=== PATIENT | female | born 1965 | race Asian ===

== ENCOUNTER → 2018-06-13 08:34 | Outpatient (CLI) | payer OTHER, SELFPAY ==
[2018-06-13 12:01] LABS: Absolute Lymphocyte Count 1.92 X10^3/ul (0.83-4.51); Basophil# 0.02 X10^3/uL; Basophil% 0.4 % (0-1); Eosinophil# 0.17 X10^3/uL; Eosinophils% 3.2 % (0-5); Hematocrit 39.1 % (37-47); Lymphocyte # 1.92 X10^3/ul (4.0); Lymphocyte % 35.6 % (19-41); Mean Corp Hgb Conc 33.2 g/gl (32-36); Mean Corpuscular Hgb 30.9 pg (27.0-32.0); Mean Corpuscular Volume 92.9 fL (81-99); Mean Platelet Vol. 10.6 fl (6.2-12.0); Monocyte# 0.25 X10^3/uL; Monocyte% 4.6 % (0-10); Neutrophil # 3.02 X10^3/uL (2.7-7.7); Platelet Count 283 K/mm3 (150-450); RBC Distribution Width CV 12.7 % (11.6-14.6); RBC Distribution Width SD 42.1 fl (35.1-43.9); Red Blood Count 4.21 M/mm3 (4.2-5.4); White Blood Count 5.4 K/mm3 (4.4-11.0)
[2018-06-13 12:10] LABS: POSITIVE COUNT NO; POSITIVE DIFFERENTIAL NO; POSITIVE MORPHOLOGY NO
[2018-06-13 12:17] LABS: AST(SGOT) 18 U/L (15-37); Alanine Aminotransfer ALT/SGPT 24 U/L (13-56); Albumin, Serum 3.9 g/dL (3.2-5.0); Alkaline Phosphatase 95 U/L (45-117); Anion Gap 10 (5-15); BUN 12 mg/dL (7-18); BUN/Creat Ratio 17.7 RATIO (10-20); Calcium,Total 8.9 mg/dL (8.5-10.1); Chloride 106 mmol/L (98-107); Cholesterol 182 mg/dL (200); Creatinine, Serum 0.68 mg/dL (0.55-1.02); EST Glomerular Filtration Rate 96 mL/min (>60); Est Glom Filt Rate - Afr Amer 116 mL/min (>60); Glucose 90 mg/dL (74-106); High Density Lipoprotein 42 mg/dL; Potassium 3.8 mmol/L (3.5-5.1); Protein, Total 7.9 g/dL (6.4-8.2); Sodium Level 144 mmol/L (136-145); Triglycerides 177 mg/dL; Very Low Density Lipoprotein 35 mg/dL (5-40)
== END ==
PROVIDERS: Family Provider Family Medicine; PCP Family Medicine; Visit Provider Family Medicine
DX: Z00.00 Encounter for general adult medical examination without abnormal findings (principal)
CPT/HCPCS: 36415; 80053; 80061; 85025

== ENCOUNTER → 2019-11-30 08:57 | Outpatient (CLI) | payer OTHER, SELFPAY ==
[2019-11-30 12:24] LABS: Absolute Lymphocyte Count 2.57 X10^3/uL (0.83-4.51); Absolute Neutrophil Count 2.9 X10^3/uL (2.0-7.7); Basophil# 0.04 X10^3/uL; Basophil% 0.7 % (0-1); Eosinophil# 0.16 X10^3/uL; Eosinophils% 2.7 % (0-5); Hematocrit 39.9 % (37-47); Hemoglobin 13.1 g/dL (12.0-15.0); Lymphocyte # 2.57 X10^3/ul (4.0); Lymphocyte % 42.6 % (19-41); Mean Corp Hgb Conc 32.8 g/dL (32-36); Mean Corpuscular Hgb 30.7 pg (27.0-32.0); Mean Corpuscular Volume 93.4 fL (81-99); Mean Platelet Vol. 10.3 fl (6.2-12.0); Monocyte# 0.37 X10^3/uL; Monocyte% 6.1 % (0-10); NRBC Flagged by Analyzer 0 % (0-5); Neutrophil # 2.87 X10^3/uL (2.7-7.7); Neutrophil % 47.6 % (47-70); Platelet Count 307 K/mm3 (150-450); RBC Distribution Width CV 12.8 % (11.6-14.6); RBC Distribution Width SD 43.5 fl (35.1-43.9); Red Blood Count 4.27 M/mm3 (4.2-5.4)
[2019-11-30 12:58] LABS: AST(SGOT) 15 U/L (15-37); Alanine Aminotransfer ALT/SGPT 24 U/L (13-56); Alkaline Phosphatase 104 U/L (45-117); Anion Gap 5 (5-15); BUN 16 mg/dL (7-18); BUN/Creat Ratio 22.5 RATIO (10-20); Calcium,Total 9.1 mg/dL (8.5-10.1); Chloride 105 mmol/L (98-107); Cholesterol 192 mg/dL (200); Creatinine, Serum 0.71 mg/dL (0.55-1.02); EST Glomerular Filtration Rate 91 mL/min (>60); Est Glom Filt Rate - Afr Amer 110 mL/min (>60); Globulin 4.1 g/dL (2.2-4.2); Glucose 93 mg/dL (74-106); High Density Lipoprotein 44 mg/dL; Potassium 3.5 mmol/L (3.5-5.1); Protein, Total 8.1 g/dL (6.4-8.2); Sodium Level 139 mmol/L (136-145); Triglycerides 196 mg/dL; Very Low Density Lipoprotein 39 mg/dL (5-40)
[2019-11-30 13:08] LABS: Hemoglobin A1c 6.3 % (4.2-6.3)
== END ==
PROVIDERS: PCP Family Medicine; Visit Provider Family Medicine
DX: Z00.00 Encounter for general adult medical examination without abnormal findings (principal); R73.01 Impaired fasting glucose
CPT/HCPCS: 36415; 80053; 80061; 83036; 85025

== ENCOUNTER → 2021-03-10 09:44 | Outpatient (CLI) | payer OTHER, SELFPAY ==
[2021-03-10 12:20] LABS: Absolute Lymphocyte Count 2.46 X10^3/uL (0.83-4.51); Absolute Neutrophil Count 3.2 X10^3/uL (2.0-7.7); Basophil# 0.04 X10^3/uL; Basophil% 0.6 % (0-1); Eosinophil# 0.27 X10^3/uL; Eosinophils% 4.2 % (0-5); Hematocrit 39.8 % (37-47); Hemoglobin 12.8 g/dL (12.0-15.0); Lymphocyte # 2.46 X10^3/ul (0.83-4.51); Lymphocyte % 38.5 % (19-41); Mean Corp Hgb Conc 32.2 g/dL (32-36); Mean Corpuscular Hgb 29.5 pg (27.0-32.0); Mean Corpuscular Volume 91.7 fL (81-99); Mean Platelet Vol. 9.3 fl (6.2-12.0); Monocyte# 0.38 X10^3/uL; Monocyte% 5.9 % (0-10); NRBC Flagged by Analyzer 0 % (0-5); Neutrophil # 3.23 X10^3/uL (2.7-7.7); Neutrophil % 50.6 % (47-70); Platelet Count 369 K/mm3 (150-450); RBC Distribution Width CV 12.7 % (11.6-14.6); Red Blood Count 4.34 M/mm3 (4.2-5.4); White Blood Count 6.4 K/mm3 (4.4-11.0)
[2021-03-10 12:38] LABS: Hemoglobin A1c 6.1 % (3.8-5.6)
[2021-03-10 12:39] LABS: AST(SGOT) 13 U/L (15-37); Alanine Aminotransfer ALT/SGPT 21 U/L (13-56); Albumin, Serum 4.1 g/dL (3.2-5.0); Alkaline Phosphatase 96 U/L (45-117); Anion Gap 7 (5-15); BUN 13 mg/dL (7-18); BUN/Creat Ratio 21.1 RATIO (10-20); Chloride 105 mmol/L (98-107); Cholesterol 199 mg/dL (200); Creatinine, Serum 0.62 mg/dL (0.55-1.02); EST Glomerular Filtration Rate 106 mL/min (>60); Est Glom Filt Rate - Afr Amer 128 mL/min (>60); Glucose 94 mg/dL (74-106); High Density Lipoprotein 45 mg/dL; Potassium 3.1 mmol/L (3.5-5.1); Protein, Total 8.1 g/dL (6.4-8.2); Sodium Level 140 mmol/L (136-145); Triglycerides 228 mg/dL; Very Low Density Lipoprotein 46 mg/dL (5-40)
== END ==
PROVIDERS: PCP Family Medicine; Referring Provider Family Medicine; Visit Provider Family Medicine
DX: Z00.00 Encounter for general adult medical examination without abnormal findings (principal); R73.01 Impaired fasting glucose
CPT/HCPCS: 36415; 80053; 80061; 83036; 85025

== ENCOUNTER → 2022-07-22 | Outpatient (CLI) | payer OTHER, SELFPAY ==
[2022-07-22 10:08] LABS: Absolute Lymphocyte Count 2.28 X10^3/uL (0.83-4.51); Absolute Neutrophil Count 3.7 X10^3/uL (2.0-7.7); Basophil# 0.03 X10^3/uL; Basophil% 0.4 % (0-1); Eosinophil# 0.25 X10^3/uL; Eosinophils% 3.7 % (0-5); Hematocrit 38.9 % (37-47); Hemoglobin 12.7 g/dL (12.0-15.0); Lymphocyte # 2.28 X10^3/ul (0.83-4.51); Lymphocyte % 34.1 % (19-41); Mean Corp Hgb Conc 32.6 g/dL (32-36); Mean Corpuscular Hgb 30.5 pg (27.0-32.0); Mean Corpuscular Volume 93.3 fL (81-99); Mean Platelet Vol. 9.9 fl (6.2-12.0); Monocyte# 0.37 X10^3/uL; Monocyte% 5.5 % (0-10); NRBC Flagged by Analyzer 0 % (0-5); Neutrophil # 3.73 X10^3/uL (2.7-7.7); Platelet Count 337 K/mm3 (150-450); RBC Distribution Width CV 13.3 % (11.6-14.6); RBC Distribution Width SD 45.5 fl (35.1-43.9); Red Blood Count 4.17 M/mm3 (4.2-5.4); White Blood Count 6.7 K/mm3 (4.4-11.0)
[2022-07-22 10:23] LABS: Hemoglobin A1c 6.2 % (3.8-5.6)
[2022-07-22 10:33] LABS: ALB/GLOB Ratio 0.9 RATIO (0.9-2.4); AST(SGOT) 20 U/L (15-37); Alanine Aminotransfer ALT/SGPT 30 U/L (13-56); Albumin, Serum 3.9 g/dL (3.2-5.0); Alkaline Phosphatase 97 U/L (45-117); Anion Gap 6 (5-15); BUN 12 mg/dL (7-18); BUN/Creat Ratio 16.2 RATIO (10-20); Calcium,Total 9.3 mg/dL (8.5-10.1); Chloride 106 mmol/L (98-107); Cholesterol 207 mg/dL (200); Creatinine, Serum 0.74 mg/dL (0.55-1.02); EST Glomerular Filtration Rate 85 mL/min (>60); Est Glom Filt Rate - Afr Amer 103 mL/min (>60); Globulin 4.2 g/dL (2.2-4.2); Glucose 108 mg/dL (74-106); High Density Lipoprotein 42 mg/dL; Potassium 3.5 mmol/L (3.5-5.1); Protein, Total 8.1 g/dL (6.4-8.2); Sodium Level 141 mmol/L (136-145); T4 Free Direct 1.11 ng/dL (0.76-1.46); Thyroid Stim Hormone (TSH) 0.89 uIU/mL (0.358-3.74); Triglycerides 264 mg/dL; Very Low Density Lipoprotein 53 mg/dL (5-40)
== END | disposition home or self-care (01) ==
LOC: MTLAB 07:58
PROVIDERS: PCP Family Medicine; Referring Provider Family Medicine; Visit Provider Family Medicine
DX: Z00.00 Encounter for general adult medical examination without abnormal findings (principal); R00.2 Palpitations; R73.01 Impaired fasting glucose
CPT/HCPCS: 36415; 80053; 80061; 83036; 84439; 84443; 85025

== ENCOUNTER → 2022-09-25 | Outpatient (CLI) | payer OTHER, SELFPAY ==
--- NOTE | 2022-09-25 15:01 | BI_ITS ---
MAMMOGRAPHY - BILATERAL SCREENING REASON FOR EXAM: Female, 56 years old. Routine annual screening examination. PERTINENT HISTORY: Non-contributory. TECHNIQUE: Digital bilateral breast jennifer (3D mammographic acquisition) in the CC and MLO projections. 2-D mediolateral oblique (MLO) and craniocaudad (CC) views of both breasts were obtained. CAD: Full Field Digital Mammography with Computer Added Detection was performed. COMPARISON: Mammogram from outside hospital from 03/24/2021, [facility] 2019. FINDINGS: Breast Composition: The breasts are heterogeneously dense, which may obscure small masses. There are no dominant masses or suspicious calcifications. No other significant abnormalities are identified. There has been no significant change since the prior study. BI/SCRN MAMM (CAD)W/JENNIFER BILAT IMPRESSION: Stable bilateral screening mammogram. Yearly follow-up mammogram recommended. (A) ASSESSMENT CATEGORY: BIRADS Category 1: Negative. A letter regarding these results will be sent to the patient by the facility within 30 days. Approximately 10% of breast cancers are not detected by mammography. A normal mammogram should not delay biopsy of a clinically suspicious abnormality. Electronically Signed: Geraldo Rodríguez, at 10:01 EST ,
== END | disposition home or self-care (01) ==
LOC: OPBI 14:58
PROVIDERS: PCP Family Medicine; Referring Provider Family Medicine; Visit Provider Family Medicine
DX: Z12.31 Encounter for screening mammogram for malignant neoplasm of breast (principal)
CPT/HCPCS: 77063; 77067

== ENCOUNTER → 2023-09-13 | Outpatient (CLI) | payer OTHER, SELFPAY ==
[2023-09-13 12:19] LABS: Absolute Lymphocyte Count 2.57 X10^3/uL (0.83-4.51); Absolute Neutrophil Count 3.1 X10^3/uL (2.0-7.7); Basophil# 0.06 X10^3/uL; Basophil% 0.9 % (0-1); Eosinophil# 0.24 X10^3/uL; Eosinophils% 3.7 % (0-5); Hematocrit 39.1 % (37-47); Hemoglobin 12.8 g/dL (12.0-15.0); Lymphocyte # 2.57 X10^3/ul (0.83-4.51); Lymphocyte % 39.4 % (19-41); Mean Corp Hgb Conc 32.7 g/dL (32-36); Mean Corpuscular Hgb 30.4 pg (27.0-32.0); Mean Corpuscular Volume 92.9 fL (81-99); Mean Platelet Vol. 9.8 fl (6.2-12.0); Monocyte# 0.46 X10^3/uL; NRBC Flagged by Analyzer 0 % (0-5); Neutrophil # 3.14 X10^3/uL (2.7-7.7); Neutrophil % 48.1 % (47-70); Platelet Count 350 K/mm3 (150-450); RBC Distribution Width CV 13.2 % (11.6-14.6); RBC Distribution Width SD 44.8 fl (35.1-43.9); Red Blood Count 4.21 M/mm3 (4.2-5.4); White Blood Count 6.5 K/mm3 (4.4-11.0)
[2023-09-13 12:58] LABS: AST(SGOT) 14 U/L (15-37); Alanine Aminotransfer ALT/SGPT 26 U/L (13-56); Alkaline Phosphatase 101 U/L (45-117); Anion Gap 3 (5-15); BUN 10 mg/dL (7-18); BUN/Creat Ratio 13.4 RATIO (10-20); Calcium,Total 9.2 mg/dL (8.5-10.1); Chloride 105 mmol/L (98-107); Cholesterol 208 mg/dL (200); Creatinine, Serum 0.75 mg/dL (0.55-1.02); EST Glomerular Filtration Rate 84 mL/min (>60); Est Glom Filt Rate - Afr Amer 102 mL/min (>60); Globulin 3.9 g/dL (2.2-4.2); Glucose 90 mg/dL (74-106); High Density Lipoprotein 42 mg/dL; Potassium 3.8 mmol/L (3.5-5.1); Protein, Total 7.9 g/dL (6.4-8.2); Sodium Level 139 mmol/L (136-145); Triglycerides 294 mg/dL; Very Low Density Lipoprotein 59 mg/dL (5-40)
== END | disposition home or self-care (01) ==
LOC: BFHLAB 10:11
PROVIDERS: PCP Family Medicine; Referring Provider Family Medicine; Visit Provider Family Medicine
DX: Z00.00 Encounter for general adult medical examination without abnormal findings (principal); R73.01 Impaired fasting glucose
CPT/HCPCS: 36415; 80053; 80061; 83036; 85025

== ENCOUNTER → 2024-02-02 | Outpatient (CLI) | payer OTHER, SELFPAY | END | disposition home or self-care (01) | PROVIDERS: PCP Family Medicine; Referring Provider Family Medicine; Visit Provider Family Medicine | DX: R05.9 Cough, unspecified (principal) | CPT/HCPCS: 87070; 87205 ==

== ENCOUNTER → 2024-06-12 | Outpatient (CLI) | payer OTHER, SELFPAY ==
[2024-06-15 03:07] LABS: QNTFERON TB Mitogen Value 1.83 IU/mL (.); QNTFERON TB Nil Value 0.03 IU/mL (.); QNTFERON TB1+ Ag Value 0.05 IU/mL (.); QNTFERON TB2+ Ag Value 0.01 IU/mL (.); QNTIFERON TB Positive Criteria Negative (Negative)
== END | disposition home or self-care (01) ==
LOC: MTLAB 08:15
PROVIDERS: PCP Family Medicine; Referring Provider Internal Medicine Pulmonary Disease; Visit Provider Internal Medicine Pulmonary Disease
DX: R06.02 Shortness of breath (principal)
CPT/HCPCS: 36415; 86480

== ENCOUNTER → 2024-09-28 | Outpatient (CLI) | payer OTHER, SELFPAY ==
[2024-09-28 10:04] LABS: Absolute Lymphocyte Count 3.05 X10^3/uL (0.83-4.51); Absolute Neutrophil Count 3.8 X10^3/uL (2.0-7.7); Basophil# 0.06 X10^3/uL; Basophil% 0.8 % (0-1); Eosinophils% 3.8 % (0-5); Hematocrit 39.8 % (37-47); Hemoglobin 12.8 g/dL (12.0-15.0); Lymphocyte # 3.05 X10^3/ul (0.83-4.51); Mean Corp Hgb Conc 32.2 g/dL (32-36); Mean Corpuscular Hgb 29.4 pg (27.0-32.0); Mean Corpuscular Volume 91.3 fL (81-99); Monocyte# 0.57 X10^3/uL; Monocyte% 7.3 % (0-10); NRBC Flagged by Analyzer 0 % (0-5); Neutrophil # 3.83 X10^3/uL (2.7-7.7); Platelet Count 364 K/mm3 (150-450); RBC Distribution Width CV 13.9 % (11.6-14.6); RBC Distribution Width SD 46.8 fl (35.1-43.9); Red Blood Count 4.36 M/mm3 (4.2-5.4); White Blood Count 7.8 K/mm3 (4.4-11.0)
[2024-09-28 10:36] LABS: ALB/GLOB Ratio 0.8 RATIO (0.9-2.4); AST(SGOT) 14 U/L (15-37); Alanine Aminotransfer ALT/SGPT 22 U/L (13-56); Albumin, Serum 3.7 g/dL (3.2-5.0); Alkaline Phosphatase 106 U/L (45-117); Anion Gap 8 (5-15); BUN 11 mg/dL (7-18); Calcium,Total 8.9 mg/dL (8.5-10.1); Chloride 105 mmol/L (98-107); Cholesterol 218 mg/dL (200); Creatinine, Serum 0.69 mg/dL (0.55-1.02); EST Glomerular Filtration Rate 92 mL/min (>60); Est Glom Filt Rate - Afr Amer 112 mL/min (>60); Globulin 4.7 g/dL (2.2-4.2); Glucose 110 mg/dL (74-106); High Density Lipoprotein 50 mg/dL; Potassium 3.6 mmol/L (3.5-5.1); Protein, Total 8.4 g/dL (6.4-8.2); Sodium Level 141 mmol/L (136-145); Triglycerides 164 mg/dL; Very Low Density Lipoprotein 33 mg/dL (5-40)
[2024-09-28 10:42] LABS: Hemoglobin A1c 6.4 % (3.8-5.6)
== END | disposition home or self-care (01) ==
PROVIDERS: PCP Family Medicine; Referring Provider Family Medicine; Visit Provider Family Medicine
DX: Z00.00 Encounter for general adult medical examination without abnormal findings (principal); R73.01 Impaired fasting glucose
CPT/HCPCS: 36415; 80053; 80061; 83036; 85025

== ENCOUNTER → 2024-12-18 | Outpatient (CLI) | payer OTHER, SELFPAY ==
--- NOTE | 2024-12-18 10:03 | RAD_ITS ---
PROCEDURE: CHEST PA AND LATERAL REASON FOR EXAM: Asthma. TECHNIQUE: Frontal and lateral views of the chest. COMPARISON: None. FINDINGS: The heart size is normal. The mediastinal contour is unremarkable. The lungs are clear. The bones are unremarkable. RAD/Chest PA and Lateral IMPRESSION: No evidence of acute disease. Negative examination. Reading Location: [id number]
== END | disposition home or self-care (01) ==
LOC: MTLAB 10:01 → MTRAD 10:02
PROVIDERS: PCP Family Medicine; Referring Provider Internal Medicine Pulmonary Disease; Visit Provider Internal Medicine Pulmonary Disease
DX: J45.909 Unspecified asthma, uncomplicated (principal)
CPT/HCPCS: 71046

== ENCOUNTER → 2025-01-10 | Outpatient (CLI) | payer OTHER, SELFPAY ==
--- NOTE | 2025-01-10 08:00 | RAD_ITS ---
PROCEDURE: ESOPHAGUS DUAL CONTRAST REASON FOR EXAM: Feeling of food and liquids getting stuck in esophagus. Acid reflux at night. TECHNIQUE: Following the ingestion of effervescent granules and high density barium, routine fluoroscopic imaging was performed with routine image documentation. COMPARISON: None. FINDINGS: No abnormalities were noted in the hypopharynx. Barium flowed through the esophagus freely. No abnormal contractility. No constricting or obstructing lesions were noted. No intraluminal filling defects. No hiatal hernia. No reflux was demonstrated. RAD/Esophagus Dual Contrast IMPRESSION: Unremarkable double contrast esophagram. Reading Location: [place] [id number]
== END | disposition home or self-care (01) ==
LOC: RAD 07:40
PROVIDERS: PCP Family Medicine; Referring Provider Otolaryngology; Visit Provider Otolaryngology
DX: R13.10 Dysphagia, unspecified (principal)
CPT/HCPCS: 74221

== ENCOUNTER → 2025-01-20 | Outpatient (CLI) | payer OTHER, SELFPAY ==
--- NOTE | 2025-01-20 08:00 | MRI_ITS ---
PROCEDURE: Noncontrast MRI of the pelvis. REASON FOR EXAM: Difficulty controlling urination. Evaluate for urethral diverticulum. TECHNIQUE: Multiplanar, multisequence MRI images of the pelvis were obtained without IV contrast. COMPARISON: None. FINDINGS: Mild degenerative changes in the lower lumbar spine. The remaining included osseous structures of the pelvis and proximal femurs appear intact. Origins of the hamstring complexes and distal attachments of the iliopsoas tendons are intact. No concerning pelvic mass or adenopathy. The included lower bowel segments show no specific abnormality. Scattered wall thickening of the included distal colon may be due to lack of distention versus peristalsis. No dominant adnexal lesion. The uterus is present. No gross abnormal endometrial thickening. Uterine myometrium is heterogeneous. There are a few T2 hyperintense lesions of the uterus, suspicious for fibroids, the largest exophytic at the right anterior fundus measuring 2.2 cm. Mild diffuse wall thickening of the urinary bladder may be due to lack of distention. No abnormal T2 hyperintense fluid signal along the course of the urethra to indicate a diverticulum. No discrete mass or abnormal fluid collection of the labia. MRI/Pelvis (Routine) IMPRESSION: No MRI evidence of a urethral diverticulum. T2 hypointense lesions of the uterine myometrium, the largest exophytic at the right anterior fundus measuring 2.2 cm, suspicious for fibroids. No dominant adnexal lesion. Reading Location: [facility]
== END | disposition home or self-care (01) ==
LOC: MRI 07:53
PROVIDERS: PCP Family Medicine; Referring Provider Urology; Visit Provider Urology
DX: N36.1 Urethral diverticulum (principal)
CPT/HCPCS: 72195

== ENCOUNTER 2025-03-15 08:29 | Day surgery (SDC) | payer OTHER, SELFPAY ==
--- NOTE | 2025-03-09 07:29 | EKG12_ITS ---
Test Reason : PREOP Blood Pressure : */* mmHG Vent. Rate : 68 BPM Atrial Rate : 68 BPM P-R Int : 144 ms QRS Dur : 78 ms QT Int : 396 ms P-R-T Axes : 50 4 13 degrees QTcB Int : 421 ms Normal sinus rhythm Possible Inferior infarct , age undetermined Abnormal ECG Confirmed by ROSSY ALVARENGA, MARIA ELENA ([id number]), manuscript editor SIOMARA RUSSELL ([id number]) on 03/09/2025 1:15:37 PM Referred By: Janay Villegas Confirmed By: MARIA ELENA BLAIR MD
[2025-03-09 08:34] LABS: Hematocrit 38.1 % (37-47); Hemoglobin 12.8 g/dL (12.0-15.0); Mean Corp Hgb Conc 33.6 g/dL (32-36); Mean Corpuscular Hgb 30.9 pg (27.0-32.0); Mean Platelet Vol. 9.5 fl (6.2-12.0); Platelet Count 337 K/mm3 (150-450); RBC Distribution Width CV 12.9 % (11.6-14.6); Red Blood Count 4.14 M/mm3 (4.2-5.4); White Blood Count 6.9 K/mm3 (4.4-11.0)
[2025-03-09 09:45] LABS: Anion Gap 11 (5-15); BUN 12 mg/dL (4-19); BUN/Creat Ratio 16.8 RATIO (10-20); Calcium,Total 9.3 mg/dL (7.6-11.0); Carbon Dioxide 24.3 mmol/L (21.0-32.0); Chloride 106 mmol/L (98-108); Creatinine, Serum 0.68 mg/dL (0.70-1.20); EST Glomerular Filtration Rate 99 (>60); Glucose 121 mg/dL (70-99); Potassium 3.7 mmol/L (3.3-5.1); Sodium Level 140 mmol/L (133-145)
--- NOTE | 2025-03-12 14:23 | PAT.ANE_ITS ---
Pre-Assessment Diagnosis/Proposed Procedure Planned Operative Procedure(s): CYSTO, MID URETHRAL SLING Anesthesia History Anesthesia History - health facilities surveyor: Anesthesia History - health facilities surveyor Hx Hospitalization No 03/08/25 15:47 Any Problems With Anesthesia No 03/08/25 15:47 Cholinesterase deficiency No 03/08/25 15:47 You/Your Family Experience No 03/08/25 15:47 fever (hyperthermia) with Relationship Recent Exposure to Contagious Disease Does patient have nerve No 03/08/25 15:47 stimulator Patient instructed to have device shut off --Does patient have Pacemaker or ICD? When Was Last Pacemaker Check QUESTION #4 FULL TEXT: You/Your Family Experience fever (hyperthermia) with Anesthesia Last Oral Intake Last Oral intake: Last Oral Intake NPO since Meds taken in AM with sips of water? Meds patient instructed to take am of surgery PONV PONV - health facilities surveyor: PONV - health facilities surveyor Female Yes 03/08/25 15:47 HX of Motion Sickness No 03/08/25 15:47 HX of N/V After Surgery No 03/08/25 15:47 Non-Smoker Yes 03/08/25 15:47 Duration of Surgery greater No 03/08/25 15:47 than 60 minutes Number of Risk Factors 2 03/08/25 15:47 PONV Score Moderate Risk 03/08/25 15:47 Respiratory Assessment Respiratory Assessment - health facilities surveyor: Respiratory Tract Infection Hx - health facilities surveyor Hx Respiratory Tract Infection No 03/08/25 15:47 STOP Sleep Apnea STOP Sleep Apnea - health facilities surveyor: STOP Sleep Apnea - health facilities surveyor Hx Hypertension No 03/08/25 15:47 Hx Sleep Apnea No 03/08/25 15:47 CPAP BIPAP Do you snore loudly (louder No 03/08/25 15:47 than talking or can be heard Do you often feel tired/ No 03/08/25 15:47 fatigued/ sleepy during daytime? Has anyone observed you stop No 03/08/25 15:47 breathing during sleep? STOP Results Negative 03/08/25 15:47 QUESTION #5 FULL TEXT : Do you snore loudly (louder than talking or can be heard through closed doors)? Tobacco Use History Tobacco Use History - health facilities surveyor: Tobacco Use History - health facilities surveyor Tobacco Use Smoking Status Never smoker 03/08/25 15:47 Hx Tobacco Use No 03/08/25 15:47 Years Smoking Packs Smoked per Day Smoking Cessation Date was within the last 15 years Hx Smoking Cessation Date Hx Smoking Cessation Counseling Hematologic Medial History Hematologic Hx - health facilities surveyor: Hematologic Medical Hx - curb setter helper Hx of Blood Transfusion No 03/08/25 15:47 Hx of Transfusion in last 3 No 03/08/25 15:47 Months Date of Last Transfusion (if within last 3 months) Ever experience any problems No 03/08/25 15:47 with transfusion(s)? Specify any problems Hx of Preganancy in last 3 No 03/08/25 15:47 Months Nurse Filling Out Transfusion [facility] 03/08/25 15:47 & Questions: Date: 03/08/25 03/08/25 15:47 Time: 16:00 03/08/25 15:47 Patient unable to answer at this time (ie. confused, unrespo /Reproduction History /Reproductive History - health facilities surveyor: /Reproductive Hx- health facilities surveyor Hx Now No 03/08/25 15:47 Gestational Age (in weeks): EDC: Hx Hx Para Hx Section SAB No 03/08/25 15:47 [facility] Medical History (Updated 03/08/25 @ 16:00 by Carina Pichardo) Wears glasses Bladder disease High cholesterol Gastric reflux Asthma Home Medications ?Medication ?Instructions ?Recorded ?Last Taken ?Type famotidine 10 mg tablet (Pepcid AC) 10 mg PO BID PRN P RN Heartburn 07/29/15 Unknown History fluticasone furoate 100 1 ea inhalation DAILY Unknown History mcg-vilanterol 25 mcg/dose inhalation powder (Breo Ellipta) Allergy/AdvReac Type Severity Reaction Status Date / Time No Known Allergies Allergy Verified 07/29/15 10:06 Surgical History (Updated 03/08/25 @ 15:47 by Carina Pichardo) No history of previous surgery Social History Smoking Status: Never smoker Audit: Pertinent Findings Pertinent Findings EKG Perinent findings: Normal sinus rhythm Possible Inferior infarct , age undetermined Abnormal ECG Recommendation Anesthesia Recommendation Anesthesia recommendation: OPTIMIZED for anesthesia
[2025-03-15] VITALS (9 sets, daily range): BP systolic 111–137; BP diastolic 63–77; PULSE 61–97; RESP 14–18; TEMP 36.1–36.8; O2SAT 96–100; BMI 25.4
[2025-03-15] MEDS: Lactated Ringers 1,000 ML 15 ML IV (09:11)
--- NOTE | 2025-03-15 09:29 | PCM.PRE.AN2 ---
ASA Classification* ASA Classification ASA Classification: 2 Assessment & Plan Anesthesia* Anesthesia Assessment Anesthesia Assessment: Discussed sedation and/or anesthesia options, risks, benefits, and alternatives with patient/parents/legal guardian/POA. Questions invited. The patient/parents/legal guardian/POA seems to understand and agrees to proceed with anesthesia plan. Reviewed the physical assessment, medical history, allergy history and patient home medications list prior to surgery/procedure/anesthetic and documented any changes. Performed airway and anesthesia risk assessments. Anesthesia Type Anesthesia Type: General History Source History Obtained from:: Patient and Chart Anesthesia Focused Assessment* Temperature: 98.3 F Pulse Rate: 64 Blood Pressure: 122/76 Respiratory Rate: 16 Pulse Ox: 100 Oxygen Delivery Method: Room Air Airway Assessment Mouth opens: >3 cm Mallampati Score: II Teeth Condition: Intact Neck Range of motion (ROM): Full ROM Comment: Short thyromental distance Focused Labs Anesthesia Preop lab: CBC WBC 6.9 K/mm3 (4.4-11.0) 03/09/25 07:50 03/09/25 RBC 4.14 M/mm3 (4.2-5.4) L 03/09/25 07:50 03/09/25 Hgb 12.8 g/dL (12.0-15.0) 03/09/25 07:50 03/09/25 Hct 38.1 % (37-47) 03/09/25 07:50 03/09/25 Plt Count 337 K/mm3 (150-450) 03/09/25 07:50 03/09/25 CHEMISTRY Potassium 3.7 mmol/L (3.3-5.1) 03/09/25 07:50 03/09/25 Sodium 140 mmol/L (133-145) 03/09/25 07:50 03/09/25 BUN 12 mg/dL (4-19) 03/09/25 07:50 03/09/25 Creatinine 0.68 mg/dL (0.70-1.20) L 03/09/25 07:50 03/09/25 Glucose 121 mg/dL (70-99) H 03/09/25 07:50 03/09/25 TSH 0.89 uIU/mL (0.358-3.74) 07/22/22 08:00 07/22/22 COAG Pre-Assessment Diagnosis/Proposed Procedure Planned Operative Procedure(s): CYSTO, MID URETHRAL SLING Anesthesia History Anesthesia History - inspector bullet slugs: Anesthesia History - inspector bullet slugs Hx Hospitalization No 03/08/25 15:47 Any Problems With Anesthesia No 03/08/25 15:47 Cholinesterase deficiency No 03/08/25 15:47 You/Your Family Experience No 03/08/25 15:47 fever (hyperthermia) with Relationship Recent Exposure to Contagious No 03/15/25 09:06 Disease Does patient have nerve No 03/08/25 15:47 stimulator Patient instructed to have device shut off --Does patient have Pacemaker No 03/15/25 09:06 or ICD? When Was Last Pacemaker Check QUESTION #4 FULL TEXT: You/Your Family Experience fever (hyperthermia) with Anesthesia Last Oral Intake Last Oral intake: Last Oral Intake NPO since 00:00 03/15/25 09:06 Meds taken in AM with sips of No 03/15/25 09:06 water? Meds patient instructed to take am of surgery PONV PONV - inspector bullet slugs: PONV - inspector bullet slugs Female Yes 03/08/25 15:47 HX of Motion Sickness No 03/08/25 15:47 HX of N/V After Surgery No 03/08/25 15:47 Non-Smoker Yes 03/08/25 15:47 Duration of Surgery greater No 03/08/25 15:47 than 60 minutes Number of Risk Factors 2 03/08/25 15:47 PONV Score Moderate Risk 03/08/25 15:47 Height & Weight Height & Weight: Anesthesia: Height & Weight Height 5 ft 3 in 03/15/25 09:06 Weight: 65 kg 03/15/25 09:06 Body Mass Index (BMI) 25.4 03/15/25 09:06 Respiratory Assessment Respiratory Assessment - inspector bullet slugs: Respiratory Tract Infection Hx - inspector bullet slugs Hx Respiratory Tract Infection No 03/08/25 15:47 STOP Sleep Apnea STOP Sleep Apnea - inspector bullet slugs: STOP Sleep Apnea - inspector bullet slugs Hx Hypertension No 03/08/25 15:47 Hx Sleep Apnea No 03/08/25 15:47 CPAP BIPAP Do you snore loudly (louder No 03/08/25 15:47 than talking or can be heard Do you often feel tired/ No 03/08/25 15:47 fatigued/ sleepy during daytime? Has anyone observed you stop No 03/08/25 15:47 breathing during sleep? STOP Results Negative 03/08/25 15:47 QUESTION #5 FULL TEXT : Do you snore loudly (louder than talking or can be heard through closed doors)? 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 Specify any problems Hx of Preganancy in last 3 No 03/08/25 15:47 Months [facility] 03/08/25 15:47 & Questions: Date: 03/08/25 03/08/25 15:47 Time: 16:00 03/08/25 15:47 Patient unable to answer at this time (ie. confused, unrespo /Reproduction History /Reproductive History - inspector bullet slugs: /Reproductive Hx- inspector bullet slugs Hx Now No 03/08/25 15:47 Gestational Age (in weeks): EDC: Hx Hx Para Hx Section SAB No 03/08/25 15:47 Active Medications Active Medications: Current Medications Generic Name Dose Route Start Last Admin Trade Name Freq PRN Reason Stop Dose Admin Cefazolin Sodium 2 gm/ Sodium 110 mls @ 150 mls/hr 03/15/25 10:00 Chloride IV 03/15/25 10:43 INTRAOP ONE Lactated Ringer's 1,000 mls @ 15 mls/hr 03/15/25 08:45 03/15/25 09:11 IV 15 mls/hr .Q48H NATY Administration PFSH Medical History Wears glasses Bladder disease High cholesterol Gastric reflux Asthma Home Medications ?Medication ?Instructions ?Recorded ?Last Taken ?Type famotidine 10 mg tablet (Pepcid AC) 10 mg PO BID PRN PRN Heartburn 07/29/15 Unknown History fluticasone furoate 100 1 ea inhalation DAILY 03/08/25 03/15/25 History mcg-vilanterol 25 mcg/dose inhalation powder (Breo Ellipta) Allergy/AdvReac Type Severity Reaction Status Date / Time doxycycline Allergy Intermediate Rash Verified 03/15/25 08:54 erythromycin base Allergy Rash Verified 03/15/25 08:54 Surgical History (Updated 03/15/25 @ 09:[address] Gustavo Pérez MD) [place] teeth removed No history of previous surgery Social History Smoking Status: Never smoker Review of Systems (Anesthesia) ROS Narrative System reviewed and no additional complaints, except as documented.
--- NOTE | 2025-03-15 10:29 | DCINST_ITS ---
Discharge Instructions Diet Discharge Diet: No restrictions Activity Discharge Activity: May Drive (When not taking pain medication) and May Shower May resume sexual activity in: 4 weeks Lifting Restrictions: 5 pounds for 4 weeks Additional Activity Instructions:: No strenuous activity, exercise, walking dog, swimming/hot tubs Dressing / Incision Call your doctor if your incision/area has: Continuous Slow Oozing, Sudden Increased Bleeding, Increased Pain/ Swelling and Foul Smelling Discharge Call your doctor if you observe: Fever of 101 or Higher, Inability to urinate and Inability to have a bowel movement Follow Up Care Please Follow Up With: Janay Villegas MD When: The office will call to make follow-up arrangements. Test Results: Test results from this visit will be discussed in further detail at your follow- up appointment, if applicable. Discharge Plan Admission Attending Provider: Janay Villegas Primary Care Provider: Asael Gaines Instructions Print Language: Armenian Discharge Orders/Prescriptions Prescriptions: New oxycodone-acetaminophen 5-325 mg tablet 1 tab PO Q8H PRN (Reason: pain) 3 Days Qty: 10 0RF cephalexin 500 mg capsule 500 mg PO Q12 3 Days Qty: 6 0RF ondansetron 4 mg tablet,disintegrating 4 mg PO Q8H PRN (Reason: nausea and vomiting) Qty: 10 0RF Continued famotidine [Pepcid AC] 10 MG tablet 10 mg PO BID PRN PRN (Reason: Heartburn) fluticasone furoate-vilanterol [Breo Ellipta] 100-25 mcg/dose blister with device 1 ea INHALATION DAILY Other Ambulatory Orders: 12 Lead EKG (Routine) Timeframe: [id number] Location: None Selected Ordered By: Dr. Gustavo Pérez Referrals / Follow Up: Asael Gaines DO [Primary Care Provider] - Disposition Disposition (needs filled in before D/C Order can be placed): Home, Self Care
--- NOTE | 2025-03-15 10:33 | PCM.OPRPT ---
Operative Report (Standard) Operative Information Date of Procedure: 03/15/25 Pre-Operative Diagnosis: Stress urinary incontinence, intrinsic sphincter deficiency Post-Operative Diagnosis: Same Surgery/Procedure Performed: Mid urethral sling insertion, cystoscopy machine leather trimmer: Yes Carousel Attendant: Mckayla Jovel Tasks completed by administrative assistant receptionist: Retracting Type of Anesthesia: General RN Documented Start/Stop Times: Operation Date: 03/15/25 10:00 Case Time Into Pre-Op 03/15/25 08:32 Out of Pre-Op 03/15/25 10:33 Anesthesia Start 03/15/25 10:37 Into Room 03/15/25 10:37 Procedure Start 03/15/25 10:52 Procedure End 03/15/25 11:05 Anesthesia End 03/15/25 11:12 Out of Room 03/15/25 11:12 Into Recovery 03/15/25 11:22 Into Phase II Recovery 03/15/25 11:57 Procedure Start Time: 10:52 Procedure Stop Time: 11:05 Select all DRAINS/GRAFTS/IMPLANTS that apply: Graft Graft details: Altis mid urethral sling Estimated Blood Loss: 20cc Specimen collected: No Description of surgery: The patient is a 59-year-old female with stress urinary incontinence who presents for surgical intervention. Informed consent was obtained. She was taken to the operating room and placed on the operating room table. Anesthesia monitored the head, neck, airway, IV access and vital signs throughout the case. Once anesthesia was appropriate ministered, she was placed into dorsolithotomy and Trendelenburg position. She was prepped and draped in usual sterile fashion. A Brown catheter was inserted to straight drain and the bladder was empty. The proximal to mid urethra was isolated and injected submucosally with lidocaine with epinephrine. A midline incision was made vertically. Sharp and blunt dissection was performed on either side of the urethra with care being taken to avoid entry into the urethra or the vaginal mucosa. The Altis mid urethral sling was then inserted into the obturator complexes bilaterally using the tines and trocars provided. The sling lay flat against the urethra in good position and then the tensioning suture was cut. The incision was closed using running interlocking 2-0 Vicryl. The patient was then taken out of Trendelenburg and the Brown catheter was removed. The cystoscope was once again inserted under direct visualization and no evidence of injury to the urethra or the bladder was identified. The cystoscope was removed. She was awakened and taken to the recovery room in good condition. There were no complications during this procedure. Surgical Findings: Good placement of Altis sling, closer to the bladder neck secondary to diagnosis of intrinsic sphincter deficiency Complications Complications: No Admit VTE Documentation VTE Present on Admission: Yes VTE Mechan Device Prophylaxis: SCD's VTE Pharm Prophylaxis ordered?: No Reason prophylaxis not ordered: Treatment Not Indicated
[2025-03-15] MEDS: Cefazolin 2 GM in 0.9% Normal Saline (100mL Bag) 100 ML IV (10:37)
[2025-03-15] MEDS: Lidocaine 1% /Epi 1:100 (20ml) 20 ML Vial (10:54)
--- NOTE | 2025-03-15 11:22 | PCM.POST.ANE ---
Anesthesia: Postop Eval I Current Vital Signs Temperature: 97.2 F Pulse Rate: 97 Blood Pressure: 137/72 Respiratory Rate: 14 Pulse Ox: 99 Oxygen Delivery Method: Room Air Assessment Airway patent: Yes Spontaneous unlabored respirations: Yes Mental status: Calm nausea: No Vomiting: No Anesthesia Complication: No Fluid Hydration Crystalloid volume administer (ml): 500 Total IV fluid infused: 500 Progress Note Anesthesia document: Postop Eval 1 completed: Yes
[2025-03-15] MEDS: oxyCODONE 5 MG Tablet PO (12:37)
[2025-03-15] MEDS: Acetaminophen 325 MG Tablet PO (12:37)
--- NOTE | 2025-03-15 13:13 | POSTOPAN2_ITS ---
Anesthesia Postop Eval I Sum Postop Eval Completion status Anesthesia document: Postop Eval 1 completed: Yes Anesthesia Postop Eval I Summary Anesthesia Postop Eval I Summary: Anesthesia Postop Eval I: Assessment Summary Airway patent Yes 03/15/25 11:22 AWNING [email or web address] Spontaneous unlabored Yes 03/15/25 11:22 AWNING [email or web address] respirations Mental status Calm 03/15/25 11:22 AWNING [email or web address].HBARR nausea No 03/15/25 11:22 AWNING [email or web address].HBARR Vomiting No 03/15/25 11:22 AWNING [email or web address] Anesthesia Postop Eval I: Fluid Summary Crystalloid volume administer 500 03/15/25 11:22 AWNING [email or web address].HBARR (ml) Colloids volume administered ( ml) Blood Product volume administered (ml) Total IV fluid infused 500 03/15/25 11:22 AWNING [email or web address].HBARR Anesthesia Postop Eval I: Summary Notes Anesthesia Complication No 03/15/25 11:22 AWNING [email or web address] Anesthesia Complication Comment: Post-operative progress note Anesthesia: Postop Eval II Evaluation Mental status: Awake and Calm Pain Level: 0 nausea: No Vomiting: No Complications Anesthesia Complication: No
--- NOTE | 2025-03-15 13:13 | PCM.POSTANE2 ---
Anesthesia Postop Eval I Sum Postop Eval Completion status Anesthesia document: Postop Eval 1 completed: Yes Anesthesia Postop Eval I Summary Anesthesia Postop Eval I Summary: Anesthesia Postop Eval I: Assessment Summary Airway patent Yes 03/15/25 11:22 ASSISTANT IN NURSING.HBARR Spontaneous unlabored Yes 03/15/25 11:22 ASSISTANT IN NURSING.HBARR respirations Mental status Calm 03/15/25 11:22 ASSISTANT IN NURSING.HBARR nausea No 03/15/25 11:22 ASSISTANT IN NURSING.HBARR Vomiting No 03/15/25 11:22 ASSISTANT IN NURSING.HBARR Anesthesia Postop Eval I: Fluid Summary Crystalloid volume administer 500 03/15/25 11:22 ASSISTANT IN NURSING.HBARR (ml) Colloids volume administered ( ml) Blood Product volume administered (ml) Total IV fluid infused 500 03/15/25 11:22 ASSISTANT IN NURSING.HBARR Anesthesia Postop Eval I: Summary Notes Anesthesia Complication No 03/15/25 11:22 ASSISTANT IN NURSING.HBARR Anesthesia Complication Comment: Post-operative progress note Anesthesia: Postop Eval II Evaluation Mental status: Awake and Calm Pain Level: 0 nausea: No Vomiting: No Complications Anesthesia Complication: No
[2025-03-15] MEDS: Ketorolac 15 MG/ML Vial IV (13:25)
== END 2025-03-15 13:37 | disposition home or self-care (01) ==
LOC: SDC 08:30 → AC 08:30
PROVIDERS: PCP Family Medicine; Referring Provider Urology; Visit Provider Urology
PROC: 0TJB8ZZ Inspection of Bladder, Via Natural or Artificial Opening Endoscopic (ICD-10-PCS; CPT 57288; principal; 2025-03-15 09:45)
DX: N36.42 Intrinsic sphincter deficiency (ISD) (principal); N39.3 Stress incontinence (female) (male); N95.2 Postmenopausal atrophic vaginitis; Z79.51 Long term (current) use of inhaled steroids; Z79.899 Other long term (current) drug therapy; E78.00 Pure hypercholesterolemia, unspecified; K21.9 Gastro-esophageal reflux disease without esophagitis; J45.909 Unspecified asthma, uncomplicated
CPT/HCPCS: 57288; 00940; 36415; 80048; 85027; 93005; C1771; J2405

== ENCOUNTER → 2025-08-06 | Outpatient (CLI) | payer OTHER, SELFPAY ==
--- OUTSIDE RECORDS SUMMARY | 2025-07-13 12:53 | XMS RPT_ITS ---
Author Name Auto Generated Organization OHIP Care Team Providers Care Cost Estimating Engineer Name Role Phone ROZ BHATT Referring Unavailable TINY MICKEY Jara Primary Care Unavailable PROBLEMS DATE TYPE CONDITION / CODE ATTENDING STATUS [facility] RCE 07/13/2025 Active Encounter for sc reening mammogram for breast cancer / Z12.31(ICD-10) NA Active [facility] PROCEDURES No Procedure Records Found RESULTS PROGRESS Observed: 07/13/2025 1:30 PM Status: COMPLETED Source: [facility] HNO ID: [id number] Author: REY CULP Mammo Tech Service: ? Author Type: Archivist Military History Type: Progress Notes Filed: 07/13/2025 13:14 Note Text: Radiology Service Progress Note PATIENT NAME: Michelle Scanlon DATE OF SERVICE: July 13, 2025 TIME: 1:14 PM PATIENT IDENTITY VERIFICATION COMPLETED USING TWO (2) IDENTIFIERS: Name and Date of confirmed by patient verbally. FALL SCREENING: Has the patient had 2 falls in the last year or 1 fall with injury or currently using an Ambulatory Assistive Device (Walker, Cane, Wheelchair, Crutches, etc.)? No PATIENT GENDER DATA: Assigned female at . status: : No status: NO. PATIENT RELEVANT IMPLANT DATA REVIEWED: Not Applicable PATIENT PRESENTS WITH AN IMPLANTABLE OR ATTACHED AUDIO VISUAL COLLECTIONS COORDINATOR: No RADIOLOGY DEPARTMENT: Mammography PERIPHERAL IV DATA: Not applicable SIGNED BY: Tish De Los Santos July 13, 2025 1:14 PM JEWEL SCREENING W JENNIFER Observed: 1:07 PM Status: F Source: [facility] * * *Final Report* * * DATE OF EXAM: Jul 13 2025 1:07PM [id number] - JEWEL SCREENING W JENNIFER / PROCEDURE REASON: Encounter for screening mammogram for breast cancer * * * * Physician Interpretation * * * * RESULT: [facility] [address] [place] [address] #[id number] - [facility] SCREENING W JENNIFER HISTORY: 59 year-old patient presents for screening. Patient is asymptomatic in both breasts. Patient states no personal history of breast cancer. COMPARISON STUDIES: The present examination has been compared to prior imaging studies dated 01/14/2016 (mammogram), 11/23/2019 (mammogram), 03/24/2021 (mammogram) and 07/22/2023 (mammogram). MAMMOGRAM TECHNIQUE: The study was acquired using full field digital technology and interpreted from soft copy. Digital Breast Tomosynthesis (DBT) images were obtained and used to assist in the interpretation of this examination. MAMMOGRAM FINDINGS: There are scattered areas of fibroglandular density. No suspicious masses, calcifications or other abnormalities are seen in either breast. There are no significant interval changes. IMPRESSION: There is no mammographic evidence of malignancy in either breast. Routine screening mammogram is recommended. Annual mammogram will be due in 1 year. BI-RADS Category 1: Negative RISK: Based on the Tyrer-Cuzick (TC) risk assessment model, this patient has a 4.2% lifetime risk of developing breast cancer, meaning they are at average risk for developing breast cancer. However, this is only an estimate based on available history provided on the patient's questionnaire. We encourage all patients to talk with their providers about these results, further recommendations for managing breast health, and appropriate supplemental screening options if the patient has dense breast tissue. Interpreting Radiologist: Annie Altamirano M.D. Resident/Fellow: Kareem Rubalcava M.D. Electronically signed on: 07/16/2025 [place] Machine Operator: YAZ Transcribe Date/Time: Jul 13 2025 12:58P Dictated by: KAREEM RUBALCAVA MD This examination was interpreted and the report reviewed and electronically signed by: ANNIE ALTAMIRANO MD on Jul 16 2025 4:44PM EST [id number] ALLERGIES DATE TYPE / CODE NAME / CODE REACTION SEVERITY SOURCE 07/02/2023 Environ/[id number] 006(SNOMED CT) SEASONAL ALLERGIES OTHER: SEE [place] [facility] se[place] ENCOUNTERS ADMIT/DISCHARGE ACCOUNT NUMBER ADMITTING ENCOUNTER CLASS LOC ATION SOURCE 07/13/2025 [id number] [facility] PAYERS ENCOUNTER GUARANTOR PAYER SUBSCRIBER SOURCE 07/13/2025 Primary Insurance:[place] [employer] SupplyPolicy Number: [id number] Date:[id number] Name:Nemo SNOW HANDOB: [id number] [place] [address] [facility]
--- NOTE | 2025-08-06 09:42 | RAD_ITS ---
PROCEDURE: CHEST PA AND LATERAL 08/06/2025 REASON FOR EXAM: ASTHMA TECHNIQUE: Procedure Code: RADCXR Modality: DX Procedure: CHEST PA AND LATERAL COMPARISON: Two-view chest, 12/18/2024. FINDINGS: The lungs are clear. The heart borders mediastinum and pulmonary vascular pattern are normal. The upper abdominal bowel gas pattern is normal. There are no significant bony abnormalities of the chest. RAD/Chest PA and Lateral IMPRESSION: No evidence of acute cardiopulmonary pathology. Reading Location: [place] [address]
== END | disposition home or self-care (01) ==
LOC: MTRAD 09:41
PROVIDERS: PCP Family Medicine; Referring Provider Internal Medicine Pulmonary Disease; Visit Provider Internal Medicine Pulmonary Disease
DX: J45.909 Unspecified asthma, uncomplicated (principal)
CPT/HCPCS: 71046